=== PATIENT | male | born 1985 | race Caucasian/White ===

== ENCOUNTER 2019-03-07 17:04 | Emergency (ER) | payer OTHER ==
[2019-03-07 17:16] VITALS: BMI 30.2
[2019-03-07 17:18] VITALS: BP 112/64; PULSE 82; RESP 16; TEMP 99.3; O2SAT 98
--- NOTE | 2019-03-07 17:25 | C.PDOC ---
History Of Present Illness 33 year old male presents to ED with complaint of intermittent frontal headache for the past 2 months. Patient describes the headache as severe, but not the worst of his life. He states that when he is driving and concentrating the pain becomes worse. He states that over the past 2 weeks the pain has become constant. Patient notes that he might need glasses. Patient has been taking Greek aspirin for relief. He denies nausea, vomiting, numbness, weakness, chest pain, photophobia, sinus congestion, and sore throat. Denies neck pain or stiffness. No rash, insect bites or recent travel. label fuser tender used. Time Seen by Provider: 03/07/19 17:24 Chief Complaint (Nursing): Headache History Per: Patient, Biotechnologist (kiswahili) History/Exam Limitations: no limitations Onset/Duration Of Symptoms: Intermittent Episodes, Persistent (at 2 weeks), Other (2 months) Current Symptoms Are (Timing): Still Present Quality: Aching Preceeding Symptoms: None Associated Symptoms: denies: Photophobia, Nausea, Vomiting Past Medical History Reviewed: Historical Data, Nursing Documentation, Vital Signs Vital Signs: Last Vital Signs Temp 99.3 F 03/07/19 17:16 Pulse 82 03/07/19 17:16 Resp 16 03/07/19 17:16 BP 112/64 03/07/19 17:16 Pulse Ox 98 03/07/19 17:16 Primary Care Provider: FAMILY PROVIDER,NO - Medical History PMH: No Chronic Diseases Surgical History: No Surg Hx Family History: States: Unknown Family Hx - Social History Hx Alcohol Use: Yes Hx Substance Use: No - Immunization History Hx Tetanus Toxoid Vaccination: No Hx Influenza Vaccination: No Hx Pneumococcal Vaccination: No Review Of Systems Except As Marked, All Systems Reviewed And Found Negative. Neurological: Positive for: Headache (frontal) Physical Exam - Physical Exam Appears: Well, Non-toxic, No Acute Distress Skin: Normal Color, Warm, Dry Head: Atraumatic, Normacephalic Eye(s): bilateral: Normal Inspection, PERRL, EOMI Ear(s): Bilateral: Normal Oral Mucosa: Moist Throat: Normal, No Erythema, No Exudate Neck: Normal ROM, No Midline Cervical Tenderness, Supple Lymphatic: No Adenopathy Chest: Symmetrical Cardiovascular: Rhythm Regular, No Murmur Respiratory: No Accessory Muscle Use, No Rales, No Rhonchi, No Wheezing Gastrointestinal/Abdominal: Bowel Sounds, Soft, No Tenderness Back: No Decreased ROM Extremity: Normal ROM, Capillary Refill (<2 seconds) Extremity: Bilateral: Atraumatic Neurological/Psych: Oriented x3, Normal Speech, Normal Cognition, Normal Cranial Nerves, Normal Motor, Normal Sensation Gait: Steady ED Course And Treatment O2 Sat by Pulse Oximetry: 98 (in RA) Pulse Ox Interpretation: Normal - CT Scan/US CT HEAD Other Rad Studies (CT/US): Read By Radiologist, Radiology Report Reviewed CT/US Interpretation: Accession No. : [id number]. Patient Name / ID : [id number] / [id number]. Exam Date : 03/07/2019 18:28:53 ( Approved ). Study Comment : Sex / Age : M / 33Y. Creator : Gia Kaur MD. Dictator : Gia Kaur MD. Cdl A Driver : Field Sales Manager : Gia Kaur MD. Approver2 : Report Date : 03/07/2019 18:41:20. My Comment : . Date of service: 03/07/2019. PROCEDURE: CT HEAD WITHOUT CONTRAST. HISTORY: Headache. COMPARISON: None available. TECHNIQUE: Axial computed tomography images were obtained through the head/brain without intravenous contrast. Radiation dose: Total exam DLP = 1088.11 mGy-cm. This CT exam was performed using one or more of the following dose reduction techniques: Automated exposure control, adjustment of the mA and/or kV according to patient size, and/or use of iterative reconstruction technique. FINDINGS: HEMORRHAGE: No intracranial hemorrhage. BRAIN: Gandhi-white matter differentiation is preserved. There is no mass, mass effect or abnormal extra-axial fluid colle ction. There is no territorial infarction. The midline sagittal structures are normal. VENTRICLES: The ventricles are normal in size, shape and configuration. CALVARIUM: There is no calvarial fracture or extracranial soft tissue swelling. PARANASAL SINUSES: Predominantly clear. MASTOID AIR CELLS: Predominantly clear. OTHER FINDINGS: None. IMPRESSION: No acute intracranial abnormality. Medical Decision Making Medical Decision Making: Impression: 33 year old male presents to ED with complaint of intermittent frontal headache for the past 2 months. Initial Plan: CT BRAIN ordered. CT brain wnl. Patient advised of findings. No neuro deficits on exam. Nontoxic. Will treat with NSAID and will follow-up with clinic and neurologist. Disposition Counseled Patient/Family Regarding: Studies Performed, Diagnosis, Need For Followup, Rx Given - Disposition Referrals: Clinic,Med Surg [Non-Staff] - Al Villareal MD [Staff Provider] - Disposition: HOME/ ROUTINE Disposition Time: 19:31 Condition: GOOD Additional Instructions: Follow-up with PMD. Return if symptoms worsen or persist. Rest. Increase fluids. Follow-up with neurologist. Prescriptions: Naproxen [Naprosyn] 500 mg PO BID 10 Days #20 tablet Instructions: Headache, Adult Forms: [facility] (Yi), General Discharge Instructions Print Language: ARMENIAN - Clinical Impression Clinical Impression: Headache - PA / ONLINE MERCHANDISING COORDINATOR / Resident Statement MD/DO has reviewed & agrees with the documentation as recorded. (Roberta Whelan) - Scribe Statement The provider has reviewed the documentation as recorded by the Scribe (Roberta Whelan) All medical record entries made by the Scribe were at my direction and personally dictated by me. I have reviewed the chart and agree that the record accurately reflects my personal performance of the history, physical exam, medical decision making, and the department course for this patient. I have also personally directed, reviewed, and agree with the discharge instructions and disposition.
--- NOTE | 2019-03-07 18:45 | CT ---
Date of service: 03/07/2019 PROCEDURE: CT HEAD WITHOUT CONTRAST. HISTORY: Headache COMPARISON: None available. TECHNIQUE: Axial computed tomography images were obtained through the head/brain without intravenous contrast. Radiation dose: Total exam DLP = 1088.11 mGy-cm. This CT exam was performed using one or more of the following dose reduction techniques: Automated exposure control, adjustment of the mA and/or kV according to patient size, and/or use of iterative reconstruction technique. FINDINGS: HEMORRHAGE: No intracranial hemorrhage. BRAIN: Gandhi-white matter differentiation is preserved. There is no mass, mass effect or abnormal extra-axial fluid collection. There is no territorial infarction. The midline sagittal structures are normal. VENTRICLES: The ventricles are normal in size, shape and configuration. CALVARIUM: There is no calvarial fracture or extracranial soft tissue swelling. PARANASAL SINUSES: Predominantly clear. MASTOID AIR CELLS: Predominantly clear. OTHER FINDINGS: None. IMPRESSION: No acute intracranial abnormality.
== END 2019-03-07 19:55 | disposition home or self-care (01) ==
LOC: C.ER 17:04
DX: R51 Headache (principal)